=== PATIENT | male | born 1940 | race Asian ===

== ENCOUNTER 2024-11-10 17:39 | Inpatient (IN) ==
[2024-11-10] MEDS: ONDANSETRON INJ 2 MG/ML 2 ML VIAL IV STA (18:12)
[2024-11-10] MEDS: SODIUM CHLORIDE 0.9% 1,000 ML IV ONE ×2 (18:12→19:20)
--- NOTE | 2024-11-10 18:12 | Emergency Department Note ---
Impression & Plan Metastatic primary lung cancer, Sepsis, Abnormal LFTs, Acidosis, lactic, Acute hypotension, Acute dehydration, Elevated troponin I level ED Provider Note NAME: JANETTE CHIU AGE: 84 SEX: M : 1940 ARRIVES VIA: Walk-In INFORMANT: Patient, the patient's daughter ED PROVIDER(S): Raul Hale DO CHIEF COMPLAINT: Altered mental status HPI: The patient is an 84-year-old male who presented to the emergency department through triage for an evaluation of altered mental status. The patient has a history of widely metastatic cancer. He appears to have metastatic disease to his lung brain as well as his liver. The patient recently had a PET scan. He is awaiting a follow-up appointment with oncology but according to his family he stopped eating and drinking. The patient is unsure the results of his recent imaging. ROS: See above HPI for pertinent positives & negatives. A total of 10 systems reviewed and were otherwise negative. PAST MEDICAL HISTORY: See Below PAST SURGICAL HISTORY: See Below FAMILY HISTORY: See Below SOCIAL HISTORY: See Below HOME MEDICATIONS: See Below ALLERGIES: See Below VITALS: See Below PHYSICAL EXAMINATION: GENERAL: The patient awakens to loud verbal commands. EYES: The conjunctiva are icteric. EARS, NOSE, MOUTH AND THROAT: The nose is without any evidence of any deformity. Mucous membranes are dry. NECK: The neck is nontender and supple. RESPIRATORY: Normal respiratory effort is noted there is no evidence of wheezing rhonchi or rales CARDIOVASCULAR: Regular rate and rhythm noted there no murmurs rubs or gallops normal S1 normal S2. GASTROINTESTINAL: The abdomen is soft and nondistended. There is diffuse tenderness to palpation but no guarding. MUSCULOSKELETAL/EXTREMITIES: There is no evidence of gross deformity full range of motion is noted in the hips and shoulders. SKIN: pedal edema was noted bilaterally. Skin was jaundiced and dry. NEUROLOGIC: The patient is awake to loud verbal commands. He follows commands slowly but appropriately. MEDICAL DECISION MAKING: The patient is an 84-year-old male who has a history of metastatic lung cancer who presented to the emergency department with family. The patient has widely metastatic cancer. He has been getting worse. He has metastasis to the brain as well as the liver. The patient was treated with IV fluids in the emergency department. He was found to have hypotension and lactic acidosis. He was covered with IV antibiotics for presumed sepsis. I discussed the patient's laboratory and radiographic studies with his family. I discussed his condition with the on-call [facility] hospitalist. After discussion with the family it sounds though they would prefer the patient to have no aggressive measures. I am not sure they were quite ready for comfort measures at this time but I think the admitting team will have further discussion with them. Triage Nursing notes reviewed. Prior medical records reviewed Vital Signs: reviewed and remarkable for initial hypotension. Differential diagnosis: Infection, dehydration, metabolic abnormality, hypo/hyperglycemia, electrolyte disturbance, anemia, hypoxia, cardiac sources, intracerebral event, toxicologic, neurologic, as well as other pathologies. ER treatment provided: See below Diagnostics interpreted by me: ECG: EKG was obtained in the emergency department. My interpretation is sinus rhythm at 70 bpm. Right bundle branch block pattern was noted. Diffuse T wave abnormalities are noted. This was compared to a tracing from January 28, 2024. No changes were noted. Cardiac Monitoring: An order was placed for continuous cardiac monitoring. The monitor shows a rate of 74 bpm with sinus rhythm. Laboratory studies: As stated above and show below. Imaging studies: See below. Radiographic imaging was reviewed by myself Consultation(s): Dr. Sparks who is on-call for the [facility] group was notified about the patient. 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 Metastatic cancer BPH loc w urin obs/LUTS Prostate cancer screening Urinary frequency Urinary hesitancy Surgical History H/O coronary artery bypass surgery Family History Other No pertinent family history Social History Smoking Status: Former smoker Tobacco Type: Cigarettes Preferred Language: Hebrew Feels Safe at Home: Yes Allergies Allergies Allergy/AdvReac Type Severity Reaction Status Date / Time No Known Allergies Allergy Verified 11/10/24 21:46 Home Meds Home Medications Medication Instructions Recorded Confirmed benzonatate 100 mg capsule 100 mg PO TID PRN Cough 11/10/24 11/10/24 fluticasone 250 mcg-salmeterol 50 2 inh inhalation DAILY 11/10/24 11/10/24 mcg/dose blistr powdr for inhalation megestrol 400 mg/10 mL (40 mg/mL) 800 mg PO DAILY 11/10/24 11/10/24 oral suspension Previous Rx's Medication Instructions Recorded tamsulosin 0.4 mg capsule 0.4 mg PO DAILY #30 caps 02/27/21 Results & Data (ED) Vital Signs Vital Signs - 24 hr 11/10/24 17:50 11/10/24 18:06 11/10/24 18:09 Temperature 36.8 C Temperature Source Temporal Artery Scan Pulse Rate 83 69 Pulse Rate [Apical] 69 Pulse Rate from SpO2 Sensor Pulse Rhythm [Apical] Pulse Strength [Apical] Respiratory Rate 26 H 20 20 Respiratory Effort / Characteristics Respiratory Depth Respiratory Pattern Blood Pressure 60/51 L Blood Pressure [Right Arm] 93/62 L Blood Pressure Mean 54 Blood Pressure Mean [Right Arm] 72 Blood Pressure Position [Right Arm] Pulse Oximetry 97 91 92 Oxygen Delivery Method Room Air Room Air Room Air Oxygen Flow Rate Sepsis Recent Fever Within 48 Hours No Sepsis New/Unexplained Change in Mental Status No Sepsis Action Taken by Nursing No Action Required 11/10/24 18:09 11/10/24 18:14 11/10/24 18:45 Temperature Temperature Source Pulse Rate 74 Pulse Rate [Apical] 64 64 Pulse Rate from SpO2 Sensor Pulse Rhythm [Apical] Pulse Strength [Apical] Respiratory Rate 20 18 Respiratory Effort / Characteristics Respiratory Depth Respiratory Pattern Blood Pressure Blood Pressure [Right Arm] 97/64 L 105/63 Blood Pressure Mean Blood Pressure Mean [Right Arm] 75 77 Blood Pressure Position [Right Arm] Pulse Oximetry 90 95 Oxygen Delivery Method Room Air Nasal Cannula Oxygen Flow Rate 2 Sepsis Recent Fever Within 48 Hours Sepsis New/Unexplained Change in Mental Status Sepsis Action Taken by Nursing 11/10/24 19:00 11/10/24 19:30 11/10/24 19:45 Temperature 36.9 C Temperature Source Oral Pulse Rate Pulse Rate [Apical] 61 60 73 Pulse Rate from SpO2 Sensor Pulse Rhythm [Apical] Regular Regular Regular Pulse Strength [Apical] Normal Normal Normal Respiratory Rate 18 18 18 Respiratory Effort / Characteristics Non-Labored Non-Labored Non-Labored Respiratory Depth Normal Normal Normal Respiratory Pattern Regular Regular Regular Blood Pressure Blood Pressure [Right Arm] 107/66 115/65 110/63 Blood Pressure Mean Blood Pressure Mean [Right Arm] 79 81 78 Blood Pressure Position [Right Arm] Lying Lying Lying Pulse Oximetry 95 96 93 Oxygen Delivery Method Nasal Cannula Nasal Cannula Nasal Cannula Oxygen Flow Rate 2 2 2 Sepsis Recent Fever Within 48 Hours Sepsis New/Unexplained Change in Mental Status Sepsis Action Taken by Nursing 11/10/24 20:00 11/10/24 20:00 11/10/24 20:48 Temperature Temperature Source Pulse Rate 67 76 72 Pulse Rate [Apical] Pulse Rate from SpO2 Sensor 68 76 72 Pulse Rhythm [Apical] Pulse Strength [Apical] Respiratory Rate 20 16 17 Respiratory Effort / Characteristics Respiratory Depth Respiratory Pattern Blood Pressure 111/59 L 111/59 L 115/64 Blood Pressure [Right Arm] Blood Pressure Mean 76 77 81 Blood Pressure Mean [Right Arm] Blood Pressure Position [Right Arm] Pulse Oximetry 93 95 93 Oxygen Delivery Method Nasal Cannula Nasal Cannula Nasal Cannula Oxygen Flow Rate 2 2 2 Sepsis Recent Fever Within 48 Hours Sepsis New/Unexplained Change in Mental Status Sepsis Action Taken by Nursing 11/10/24 21:12 Temperature Temperature Source Pulse Rate 74 Pulse Rate [Apical] Pulse Rate from SpO2 Sensor 74 Pulse Rhythm [Apical] Pulse Strength [Apical] Respiratory Rate 23 Respiratory Effort / Characteristics Respiratory Depth Respiratory Pattern Blood Pressure 108/66 Blood Pressure [Right Arm] Blood Pressure Mean 80 Blood Pressure Mean [Right Arm] Blood Pressure Position [Right Arm] Pulse Oximetry 93 Oxygen Delivery Method Nasal Cannula Oxygen Flow Rate 2 Sepsis Recent Fever Within 48 Hours Sepsis New/Unexplained Change in Mental Status Sepsis Action Taken by Group Home Medications Current Medication List: was personally reviewed by me Laboratory Data Attestation: I reviewed the patient's lab results. 11/10/24 18:00 11/10/24 18:00 Lab Results 11/10/24 11/10/24 11/10/24 Range/Units 18:00 18:06 18:11 WBC 8.49 (4.8-10.8) K/ul RBC 4.17 L (4.70-6.10) M/uL Hgb 13.5 L (14.0-18.0) g/dl POC Hgb 14.3 (14.0-18.0) g/dl Hct 38.8 L (42.0-52.0) % POC Hct 42 (42-52) % MCV 93.0 (80.0-100.0) fL MCH 32.4 (25.0-34.0) pg MCHC 34.8 (32.0-36.0) g/dL RDW Std Deviation 65.6 H (36.4-46.3) fL RDW Coeff of Carolann 20.1 H (11.5-14.5) % Plt Count 168 (130-400) K/uL MPV 11.0 (9.4-12.4) fL Immature Gran % (Auto) 4.9 % Neut % (Auto) 76.1 % Lymph % (Auto) 13.0 % [place] % (Auto) 5.4 % Eos % (Auto) 0.2 % Baso % (Auto) 0.4 % Neut # (Auto) 6.46 (1.40-6.50) K/uL Lymph # (Auto) 1.10 L (1.20-3.40) K/uL [place] # (Auto) 0.46 (0.11-0.59) K/uL Eos # (Auto) 0.02 (0.00-0.50) K/uL Baso # (Auto) 0.03 (0.00-0.20) K/uL Immature Gran # (Auto) 0.42 H (0.01-0.20) K/uL Target Cells 1+ PT Cancelled INR Cancelled APTT Cancelled PTT Ratio Cancelled VBG pH (7.36-7.41) VBG pCO2 (38-50) mmHg VBG pO2 mmHg VBG HCO3 mmol/L VBG O2 Saturation % VBG Base Excess mEq/L POC Sodium 138 (135-144) mmol/L Sodium 132 L (136-145) mmol/L POC Potassium 5.3 H (3.3-5.0) mmol/L Potassium 5.1 (3.5-5.1) mmol/L POC Chloride 110 (101-112) mmol/L Chloride 106 (98-107) mmol/L Carbon Dioxide 29 (21-32) mmol/L POC Total CO2 16 L (24-31) mmol/L Anion Gap -3 L (3-11) POC Anion Gap 18.0 (16-25) mmol/L POC BUN 63 H (7-18) mg/dl BUN 72 H (6-23) mg/dl Creatinine 2.49 H (0.6-1.4) mg/dl POC Creatinine 2.8 H (0.6-1.3) mg/dl Est Cr Clr Drug Dosing 17.4 ml/min eGFR 24.99 BUN/Creatinine Ratio 28.9 H (10-20) Glucose 154 H (70-99(Fasting)) mg/dl POC Glucose (other) 156 H (70-99) mg/dl Lactate 4.0 H* (0.4-2.0) mmol/L Calcium 9.6 (8.6-10.3) mg/dl POC Ioniz Calcium Chevy 1.27 (1.12-1.32) mmol/l Magnesium 2.4 (1.7-2.4) mg/dl Total Bilirubin 15.9 H (0.2-1.0) mg/dl Direct Bilirubin 9.5 H (0-0.2) mg/dl AST 489 H (13-39) U/L ALT 197 H (7-52) U/L Alkaline Phosphatase 1000 H (34-104) U/L Ammonia 68.0 (18-72) umol/L Troponin I High Sens 126.2 H* (0-20) pg/ml Total Protein 7.5 (6.0-8.3) gm/dl Albumin 2.8 L (3.4-5.0) gm/dl Procalcitonin 1.79 H (0-0.5) ng/ml Adenovirus (PCR) Not Detected (NotDetected) B. pertussis DNA (PCR) Not Detected (NotDetected) B.parapertussis DNA PCR Not Detected (NotDetected) C. pneumoniae DNA (PCR) Not Detected (NotDetected) Coronavirus OC43 (PCR) Not Detected (NotDetected) Coronavirus HKU1 (PCR) Not Detected (NotDetected) Coronavirus 229E (PCR) Not Detected (NotDetected) SARS-CoV-2 (PCR) Not Detected (NotDetected) Coronavirus NL63 (PCR) Not Detected (NotDetected) Human Metapneumovir PCR Not Detected (NotDetected) Influenza Type A (PCR) Not Detected (NotDetected) Influenza Type B (PCR) Not Detected (NotDetected) M. pneumoniae (PCR) Not Detected (NotDetected) Parainfluenza 1 (PCR) Not Detected (NotDetected) Parainfluenza 2 (PCR) Not Detected (NotDetected) Parainfluenza 3 (PCR) Not Detected (NotDetected) Parainfluenza 4 (PCR) Not Detected (NotDetected) RSV (PCR) Not Detected (NotDetected) Entero/Rhino (PCR) Not Detected (NotDetected) 11/10/24 11/10/24 Range/Units 19:16 20:33 WBC (4.8-10.8) K/ul RBC (4.70-6.10) M/uL Hgb (14.0-18.0) g/dl POC Hgb (14.0-18.0) g/dl Hct (42.0-52.0) % POC Hct (42-52) % MCV (80.0-100.0) fL MCH (25.0-34.0) pg MCHC (32.0-36.0) g/dL RDW Std Deviation (36.4-46.3) fL RDW Coeff of Carolann (11.5-14.5) % Plt Count (130-400) K/uL MPV (9.4-12.4) fL Immature Gran % (Auto) % Neut % (Auto) % Lymph % (Auto) % [place] % (Auto) % Eos % (Auto) % Baso % (Auto) % Neut # (Auto) (1.40-6.50) K/uL Lymph # (Auto) (1.20-3.40) K/uL [place] # (Auto) (0.11-0.59) K/uL Eos # (Auto) (0.00-0.50) K/uL Baso # (Auto) (0.00-0.20) K/uL Immature Gran # (Auto) (0.01-0.20) K/uL Target Cells PT 11.6 INR 1.1 APTT 27 PTT Ratio 1.0 VBG pH 7.31 L (7.36-7.41) VBG pCO2 32 L (38-50) mmHg VBG pO2 37 mmHg VBG HCO3 16 mmol/L VBG O2 Saturation < 60.0 % VBG Base Excess -9.0 mEq/L POC Sodium (135-144) mmol/L Sodium (136-145) mmol/L POC Potassium (3.3-5.0) mmol/L Potassium (3.5-5.1) mmol/L POC Chloride (101-112) mmol/L Chloride (98-107) mmol/L Carbon Dioxide (21-32) mmol/L POC Total CO2 (24-31) mmol/L Anion Gap (3-11) POC Anion Gap (16-25) mmol/L POC BUN (7-18) mg/dl BUN (6-23) mg/dl Creatinine (0.6-1.4) mg/dl POC Creatinine (0.6-1.3) mg/dl Est Cr Clr Drug Dosing ml/min eGFR BUN/Creatinine Ratio (10-20) Glucose (70-99(Fasting)) mg/dl POC Glucose (other) (70-99) mg/dl Lactate 3.0 H* (0.4-2.0) mmol/L Calcium (8.6-10.3) mg/dl POC Ioniz Calcium Chevy (1.12-1.32) mmol/l Magnesium (1.7-2.4) mg/dl Total Bilirubin (0.2-1.0) mg/dl Direct Bilirubin (0-0.2) mg/dl AST (13-39) U/L ALT (7-52) U/L Alkaline Phosphatase (34-104) U/L Ammonia (18-72) umol/L Troponin I High Sens 112.6 H* (0-20) pg/ml Total Protein (6.0-8.3) gm/dl Albumin (3.4-5.0) gm/dl Procalcitonin (0-0.5) ng/ml Adenovirus (PCR) (NotDetected) B. pertussis DNA (PCR) (NotDetected) B.parapertussis DNA PCR (NotDetected) C. pneumoniae DNA (PCR) (NotDetected) Coronavirus OC43 (PCR) (NotDetected) Coronavirus HKU1 (PCR) (NotDetected) Coronavirus 229E (PCR) (NotDetected) SARS-CoV-2 (PCR) (NotDetected) Coronavirus NL63 (PCR) (NotDetected) Human Metapneumovir PCR (NotDetected) Influenza Type A (PCR) (NotDetected) Influenza Type B (PCR) (NotDetected) M. pneumoniae (PCR) (NotDetected) Parainfluenza 1 (PCR) (NotDetected) Parainfluenza 2 (PCR) (NotDetected) Parainfluenza 3 (PCR) (NotDetected) Parainfluenza 4 (PCR) (NotDetected) RSV (PCR) (NotDetected) Entero/Rhino (PCR) (NotDetected) Administered Medications Discontinued Medications Sodium Chloride (Nss) 1,000 mls @ 999 mls/hr IV .Q1H1M ONE Stop: 11/10/24 18:59 Last Infusion: 11/10/24 19:26 Dose: Infused Documented By: Admin: 11/10/24 18:12 Dose: 999 mls/hr Documented By: CYN Sodium Chloride (Nss) 1,000 mls @ 999 mls/hr IV .Q1H1M ONE Stop: 11/10/24 19:37 Last Infusion: 11/10/24 20:43 Dose: Infused Documented By: Admin: 11/10/24 19:20 Dose: 999 mls/hr Documented By: RENUKA Piperacillin Sod/Tazobactam Sod (Zosyn) 4.5 gm in 100 mls @ 200 mls/hr IV NOW ONE; Protocol Stop: 11/10/24 19:41 Last Infusion: 11/10/24 19:50 Dose: Infused Documented By: Admin: 11/10/24 19:20 Dose: 200 mls/hr Documented By: RENUKA Morphine Sulfate (Morphine Sulfate 4 Mg/Ml 1 Ml Carp\Vial) 4 mg IV NOW STA Stop: 11/10/24 18:10 Last Admin: 11/10/24 18:13 Dose: 4 mg Documented By: CYN Ondansetron HCl (Ondansetron Inj 2 Mg/Ml 2 Ml Vial) 4 mg IV NOW STA Stop: 11/10/24 18:10 Last Admin: 11/10/24 18:12 Dose: 4 mg Documented By: CYN Imaging Data Attestation: I personally reviewed and interpreted this imaging study as follows: My Impression: 1 view chest x-ray was obtained in the emergency department. My interpretation is interstitial prominence, there is no free air, final report below. CT the brain was obtained in the emergency department. My interpretation is metastatic disease was noted, final report below. Radiologist's Impression: Chest X-Ray 11/10/24 17:59 Clinical History: Sepsis Technique: A frontal view of the chest was obtained Comparison is made to the prior examination dated 08/08/2024 Findings: There are no definite focal pulmonary infiltrates. There is suspected mild pulmonary vascular congestion. The heart size is at the upper limit of normal. No pleural effusion or pneumothorax is seen. There is a left upper lobe nodule, which appears slightly decreased in size. Impression: 1. Suspected decrease in size of a left upper lobe mass 2. Increased interstitial prominence that may be due to pulmonary vascular congestion Electronically signed by Kyle Doyle 11-10-2024 7:[address] 11/10/24 18:02 Clinical History: Weakness. Lung cancer Technique: Axial computed tomography images were obtained of the brain without intravenous contrast. Comparison is made to the MRI dated 10/28/2034 Findings: There is unchanged cerebral atrophy, within expected limits for the patient's age. Areas of decreased attenuation are seen within the periventricular white matter, likely representing chronic small vessel ischemic disease. There is no definite sign of acute or old infarction. No intracranial hemorrhage is evident. Allowing for differences in technique, there is no definite change in a left frontal lobe interparenchymal mass with surrounding cerebral edema. The previously seen smaller right frontal mass is likely unchanged as well, with adjacent edema again noted. There is no definite change in edema within the left parietal lobe around an additional mass. There is no midline shift or other form of herniation. No hydrocephalus is seen. No fracture is identified. The orbits and the visualized paranasal sinuses appear unremarkable. The mastoid air cells appear clear. Impression: 1. Cerebral atrophy and chronic small vessel ischemic disease 2. No definite change in multiple cerebral masses, consistent with metastatic disease Electronically signed by Kyle Doyle 11-10-2024 7:05 PM Abdomen/Pelvis CT 11/10/24 18:09 CT ABDOMEN and PELVIS without INTRAVENOUS CONTRAST HISTORY: Abdominal pain TECHNIQUE: CT abdomen and pelvis without contrast. IV CONTRAST: None ENTERIC CONTRAST: None. COMPARISON: PET/CT November 03, 2024. FINDINGS: LOWER CHEST: Please refer to separately dictated chest CT report from the same day. LIVER: Multifocal ill-defined hypodensities of the liver representing metastases which were better evaluated in the prior PET/CT. There is mild enlargement of the liver. GALLBLADDER/BILIARY: Gallbladder containing sludge and small stones. No appreciable pericholecystic inflammation. No abnormal biliary dilatation. SPLEEN: Unremarkable. PANCREAS: Unremarkable. ADRENALS: There are incomplete characterized adrenal nodules measuring up to 2.0 cm.. KIDNEYS: Cortical cysts. No stones or hydronephrosis identified. PERITONEUM/RETROPERITONEUM. There are multiple enlarged lymph nodes in the upper abdomen in the gastrohepatic interval, portacaval area and in the gastropancreatic interval and in the retroperitoneum measuring up to 2.0 cm. There is an infrarenal abdominal aortic aneurysm measuring up to 3.3 cm in size. GASTROINTESTINAL: No obstruction. Appendix normal. REPRODUCTIVE: Normal-sized prostate gland with tiny calcifications. URINARY BLADDER: Unremarkable. BONES: No acute findings. Mild anterior wedging of the T12 vertebral body, probably chronic. IMPRESSION: Limited evaluation of the abdominopelvic viscera in the absence of the intravenous contrast. Within this limitation: Diffuse hepatic metastases and upper abdominal ivelisse metastases are identified. Incompletely characterized adrenal nodules may represent metastases as well. An infrarenal abdominal aortic aneurysm measuring up to 3.3 cm in size. Electronically signed by Dillon Mata 11-10-2024 7:[address] 11/10/24 18:09 Clinical history: Lung cancer Technique: Axial computed tomography images were obtained of the chest without intravenous contrast Comparison is made to the prior CT dated 09/20/2024 Findings: Severe emphysema is again seen. There is a 2.9 x 2.2 cm spiculated mass in the left upper lobe abutting the top of the left major fissure, previously 3.4 x 2.5 cm. The previously noted small scattered pulmonary nodules appear to have decreased in size and number as well. There is no pleural effusion or pneumothorax. There is dependent subsegmental atelectasis in both lower lobes. There is a small calcified granuloma in the right lower lobe. Confluent mediastinal adenopathy is again seen, consistent with metastatic disease. The thoracic aorta is of normal caliber. There is no pericardial effusion. There is coronary atherosclerosis No fracture is seen. No focal osseous lesion is evident Impression: 1. Slight decrease in size of a left upper lobe mass, likely representing bronchogenic carcinoma responding to therapy 2. Interval decrease in size and number of small pulmonary nodules, which may represent metastatic disease responding to therapy 3. Severe emphysema 4. Bilateral lower lobe atelectasis 5. Unchanged extensive mediastinal adenopathy, consistent with metastatic disease Electronically signed by Kyle Doyle 11-10-2024 7:10 PM Discharge Plan Visit Data Chief Complaint: Weakness Stated Complaint: VERY WEAK, LUNG CANCER SPREADING TO LIVER ED Provider: Raul Hale Discharge Problem: Metastatic primary lung cancer, Sepsis, Abnormal LFTs, Acidosis, lactic, Acute hypotension, Acute dehydration, Elevated troponin I level Patient Disposition: Being Evaluated by Hospitalist Forms Stand Alone Forms: My [employer] Prescriptions Prescriptions: No Action tamsulosin 0.4 mg capsule 0.4 mg PO DAILY Qty: 30 2RF megestrol 400 mg/10 mL (40 mg/mL) suspension 800 mg PO DAILY fluticasone propion-salmeterol 250-50 mcg/dose blister with device 2 inh INHALATION DAILY benzonatate 100 mg capsule 100 mg PO TID PRN (Reason: Cough) Referrals Referrals: Nancy Matt [Primary Care Provider] -
[2024-11-10] MEDS: MoRPHine SULFATE 4 MG/ML 1 ML CARP\\VIAL IV STA (18:13)
[2024-11-10 18:18] LABS: iSTAT Creatinine 2.8 mg/dl (0.6-1.3); iSTAT Hemoglobin 14.3 g/dl (14.0-18.0); iSTAT Ionized Calcium 1.27 mmol/l (1.12-1.32); iSTAT Potassium 5.3 mmol/L (3.3-5.0)
[2024-11-10 18:31] LABS: Basophils # (auto) 0.03 K/uL (0.00-0.20); Basophils % (auto) 0.4 %; Eosinophils # (auto) 0.02 K/uL (0.00-0.50); Eosinophils % (auto) 0.2 %; Hematocrit (blood only) 38.8 % (42.0-52.0); Hemoglobin 13.5 g/dl (14.0-18.0); Immature Granulocytes # (auto) 0.42 K/uL (0.01-0.20); Immature Granulocytes % (auto) 4.9 %; Mean Corpuscular Hemoglobin 32.4 pg (25.0-34.0); Mean Corpuscular Hgb Conc 34.8 g/dL (32.0-36.0); Monocytes # (auto) 0.46 K/uL (0.11-0.59); Monocytes % (auto) 5.4 %; Neutrophils # (auto) 6.46 K/uL (1.40-6.50); Neutrophils % (auto) 76.1 %; Platelet Count 168 K/uL (130-400); RDW Coefficient of Variation 20.1 % (11.5-14.5); RDW Standard Deviation 65.6 fL (36.4-46.3); Red Blood Count 4.17 M/uL (4.70-6.10); White Blood Count 8.49 K/ul (4.8-10.8)
[2024-11-10 18:49] LABS: Albumin Level 2.8 gm/dl (3.4-5.0); BUN Creatinine Ratio 28.9 (10-20); Bilirubin Direct 9.5 mg/dl (0-0.2); Bilirubin,Total 15.9 mg/dl (0.2-1.0); Calcium 9.6 mg/dl (8.6-10.3); Creatinine Clr Calc Pharmacy 17.4 ml/min; Magnesium 2.4 mg/dl (1.7-2.4); Potassium 5.1 mmol/L (3.5-5.1); Total Protein 7.5 gm/dl (6.0-8.3)
[2024-11-10 18:57] LABS: Troponin I High Sensitivity 126.2 pg/ml (0-20)
[2024-11-10 19:05] LABS: Target Cells 1+
--- NOTE | 2024-11-10 19:05 | CT Scan Report ---
Clinical History: Weakness. Lung cancer Technique: Axial computed tomography images were obtained of the brain without intravenous contrast. Comparison is made to the MRI dated 10/28/2034 Findings: There is unchanged cerebral atrophy, within expected limits for the patient's age. Areas of decreased attenuation are seen within the periventricular white matter, likely representing chronic small vessel ischemic disease. There is no definite sign of acute or old infarction. No intracranial hemorrhage is evident. Allowing for differences in technique, there is no definite change in a left frontal lobe interparenchymal mass with surrounding cerebral edema. The previously seen smaller right frontal mass is likely unchanged as well, with adjacent edema again noted. There is no definite change in edema within the left parietal lobe around an additional mass. There is no midline shift or other form of herniation. No hydrocephalus is seen. No fracture is identified. The orbits and the visualized paranasal sinuses appear unremarkable. The mastoid air cells appear clear. Impression: 1. Cerebral atrophy and chronic small vessel ischemic disease 2. No definite change in multiple cerebral masses, consistent with metastatic disease Electronically signed by Kyle Doyle 11-10-2024 7:05 PM
--- NOTE | 2024-11-10 19:11 | CT Scan Report ---
Clinical history: Lung cancer Technique: Axial computed tomography images were obtained of the chest without intravenous contrast Comparison is made to the prior CT dated 09/20/2024 Findings: Severe emphysema is again seen. There is a 2.9 x 2.2 cm spiculated mass in the left upper lobe abutting the top of the left major fissure, previously 3.4 x 2.5 cm. The previously noted small scattered pulmonary nodules appear to have decreased in size and number as well. There is no pleural effusion or pneumothorax. There is dependent subsegmental atelectasis in both lower lobes. There is a small calcified granuloma in the right lower lobe. Confluent mediastinal adenopathy is again seen, consistent with metastatic disease. The thoracic aorta is of normal caliber. There is no pericardial effusion. There is coronary atherosclerosis No fracture is seen. No focal osseous lesion is evident Impression: 1. Slight decrease in size of a left upper lobe mass, likely representing bronchogenic carcinoma responding to therapy 2. Interval decrease in size and number of small pulmonary nodules, which may represent metastatic disease responding to therapy 3. Severe emphysema 4. Bilateral lower lobe atelectasis 5. Unchanged extensive mediastinal adenopathy, consistent with metastatic disease Electronically signed by Kyle Doyle 11-10-2024 7:10 PM
[2024-11-10] MEDS: PIPERACILLIN/TAZOBACTAM 4.5 GM/100 ML BAG IV ONE (19:20)
--- NOTE | 2024-11-10 19:23 | CT Scan Report ---
CT ABDOMEN and PELVIS without INTRAVENOUS CONTRAST HISTORY: Abdominal pain TECHNIQUE: CT abdomen and pelvis without contrast. IV CONTRAST: None ENTERIC CONTRAST: None. COMPARISON: PET/CT November 03, 2024. FINDINGS: LOWER CHEST: Please refer to separately dictated chest CT report from the same day. LIVER: Multifocal ill-defined hypodensities of the liver representing metastases which were better evaluated in the prior PET/CT. There is mild enlargement of the liver. GALLBLADDER/BILIARY: Gallbladder containing sludge and small stones. No appreciable pericholecystic inflammation. No abnormal biliary dilatation. SPLEEN: Unremarkable. PANCREAS: Unremarkable. ADRENALS: There are incomplete characterized adrenal nodules measuring up to 2.0 cm.. KIDNEYS: Cortical cysts. No stones or hydronephrosis identified. PERITONEUM/RETROPERITONEUM. There are multiple enlarged lymph nodes in the upper abdomen in the gastrohepatic interval, portacaval area and in the gastropancreatic interval and in the retroperitoneum measuring up to 2.0 cm. There is an infrarenal abdominal aortic aneurysm measuring up to 3.3 cm in size. GASTROINTESTINAL: No obstruction. Appendix normal. REPRODUCTIVE: Normal-sized prostate gland with tiny calcifications. URINARY BLADDER: Unremarkable. BONES: No acute findings. Mild anterior wedging of the T12 vertebral body, probably chronic. IMPRESSION: Limited evaluation of the abdominopelvic viscera in the absence of the intravenous contrast. Within this limitation: Diffuse hepatic metastases and upper abdominal ivelisse metastases are identified. Incompletely characterized adrenal nodules may represent metastases as well. An infrarenal abdominal aortic aneurysm measuring up to 3.3 cm in size. Electronically signed by Dillon Mata 11-10-2024 7:23 PM
[2024-11-10 19:25] LABS: Adenovirus PCR Not Detected (NotDetected); Bordetella parapertussis PCR Not Detected (NotDetected); Bordetella pertussis PCR Not Detected (NotDetected); Chlamydia pneumoniae PCR Not Detected (NotDetected); Coronavirus 229E PCR Not Detected (NotDetected); Coronavirus CoV-2 (COVID19)PCR Not Detected (NotDetected); Coronavirus HKU1 PCR Not Detected (NotDetected); Coronavirus NL63 PCR Not Detected (NotDetected); Coronavirus OC43PCR Not Detected (NotDetected); Human Metapneumovirus PCR Not Detected (NotDetected); Influenza A PCR Not Detected (NotDetected); Influenza B PCR Not Detected (NotDetected); Mycoplasma pneumoniae PCR Not Detected (NotDetected); Parainfluenza Virus 1 PCR Not Detected (NotDetected); Parainfluenza Virus 2 PCR Not Detected (NotDetected); Parainfluenza Virus 3 PCR Not Detected (NotDetected); Parainfluenza Virus 4 PCR Not Detected (NotDetected); Respiratory Syncytial VirusPCR Not Detected (NotDetected); Rhinovirus/Enterovirus PCR Not Detected (NotDetected)
[2024-11-10 19:35] LABS: HCO3 VBG 16 mmol/L; Oxygen Saturation VBG < 60.0 %; PCO2 VBG 32 mmHg (38-50); PO2 VBG 37 mmHg; pH VBG 7.31 (7.36-7.41)
--- NOTE | 2024-11-10 19:53 | XRay Report ---
Clinical History: Sepsis Technique: A frontal view of the chest was obtained Comparison is made to the prior examination dated 08/08/2024 Findings: There are no definite focal pulmonary infiltrates. There is suspected mild pulmonary vascular congestion. The heart size is at the upper limit of normal. No pleural effusion or pneumothorax is seen. There is a left upper lobe nodule, which appears slightly decreased in size. Impression: 1. Suspected decrease in size of a left upper lobe mass 2. Increased interstitial prominence that may be due to pulmonary vascular congestion Electronically signed by Kyle Doyle 11-10-2024 7:53 PM
[2024-11-10 20:13] LABS: INR 1.1 (0.9-1.1); Partial Thromboplastin Time 27 Seconds (21-31); Prothrombin Time 11.6 Seconds (9.0-12.0)
--- NOTE | 2024-11-10 21:21 | Advance Care Plan Prog Note ---
Advanced Care Planning Note Date of Discussion November 10, 2024 ACP Discussion Diagnoses requiring ACP discussion: Metastatic cancer unknown primary A [id number] discussion with the patient's daughters regarding the patient's advanced care planning took place during this hospitalization on the above date. The discussion included the explanation and discussion of advance directives and associated forms/documents, as well as the patient's current code status. We also discussed at length the patient's medical conditions (both acute and chronic), general prognosis, treatment options, and goals of care. The following summarizes the discussion: Extensive discussion had with family a bout patient's condition. Family understands that we are likely moving into the active stage of dying. Would like to focus on comfort as we move towards the end of life. Family aware that we will not be giving anymore fluids or antibiotics. We will admit to [facility] as patient will likely pass in the next few days. Status Resuscitation Status DNR/DNI No Resuscitation Total Time I spent a total of 29 minutes was spent on this discussion, including counseling, answering questions, and completing, if any, pertinent advanced care planning forms/documents. Resident Activity Tracking Resident Involvement: Resident Care Provided Care Provided: Adult [facility]
--- NOTE | 2024-11-10 21:28 | History & Physical Report ---
Date of Service November 10, 2024 Assessment & Plan (1) Metastatic cancer: Plan: Likely lung primary with brain and liver mets. No formal diagnosis has been made at this time. Patient no longer eating or drinking much at all. Labs with signs of end organ damage and multi-organ failure. Esau discussion was had with family regarding end of life planning. Will admit for end of life care and comfort measures only. discontinue home meds STAFF SERVICES MANAGER order set, no labs or vitals palliative consult - appreciate recs (2) Admission for end of life care: Plan: See advanced care planning documentation for further information (3) Comfort measures only status: (4) Metastasis to liver: (5) Metastasis to brain: Plan Code status: DNR/DNI STAFF SERVICES MANAGER DVT ppx: contraindicated FENGI: as desired, no IVF Dispo: [facility], STAFF SERVICES MANAGER anticipate passing while inpatient History of Present Illness Chief Complaint: weakness Primary Care Provider: Nancy Matt 84 y/o presents with failure to thrive. Patient diagnosed with lung cancer 09/20/2024 with mets to the liver and brain. Has not started treatment. Plan was to review Brain MRI and PET with Dr. Chambers next week and decide on next steps. Over the last few days he has become acutely weaker. Patient is barely eating or drinking. Family concerned that he may be in the active stage of dying. Daughters are at bedside and translate for the patient as he is mandarin speaking. Reportedly patient has noticed blurry vision and is uncomfortable. In the ED: Patient given 2L IVF, morphine, and Zosyn. Imaging performed as well. Hospitalist service consulted for admission. Allergies Allergy/AdvReac Type Severity Reaction Status Date / Time No Known Allergies Allergy Verified 11/10/24 21:46 Home Medications Medication Instructions Recorded Confirmed Type tamsulosin 0.4 mg capsule 0.4 mg PO DAILY #30 caps 02/27/21 11/10/24 Rx benzonatate 100 mg capsule 100 mg PO TID PRN Cough 11/10/24 11/10/24 History fluticasone 250 mcg-salmeterol 50 2 inh inhalation DAILY 11/10/24 11/10/24 History mcg/dose blistr powdr for inhalation megestrol 400 mg/10 mL (40 mg/mL) 800 mg PO DAILY 11/10/24 11/10/24 History oral suspension 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 Metastatic cancer BPH loc w urin obs/LUTS Prostate cancer screening Urinary frequency Urinary hesitancy Surgical History H/O coronary artery bypass surgery Family History Other No pertinent family history Social History Smoking Status: Former smoker Tobacco Type: Cigarettes Cigarettes Per Day: A pack a day.; Second Hand Exposure: No; Do You Dip or Chew Tobacco: No; Tobacco Cessation Education Requested by Patient: No Hx Alcohol Use: No Hx Substance Use: No Preferred Language: Mandarin Swedish Communication Ability: Impaired Communication Tools: Other Block Trader Required: Yes Beliefs That Will Affect Care: Adventist Adventist Beliefs: Islam. Current Living Situation: Spouse Current Living Situation Comment: Lives in [facility]. Other Information That Helps Us Care for You: No Feels Safe at Home: Yes Safety Concerns: Feels Safe At This Time Assistive Devices: Cane, Denture - Upper, Denture - Lower and Glasses Review of Systems 2 Review of Systems: See HPI Physical Exam 2 Physical Exam: Gen: jaundiced, chronically ill, and cachectic appearing male in no distress HEENT: AT AR dry mucous membranes Resp: non-labored breathing CV: RRR no m/r/g skin is warm Abd: non-distended MSK: no obvious deformities Skin: no rashes or bruising Neuro: alert and oriented Psych: appropriate mood and affect Results & Data Results & Data Vital Signs (Past 12 Hours) Vital Signs Temp Pulse Pulse Resp BP BP Pulse Ox 11/10/24 20:48 72 17 115/64 93 11/10/24 20:00 76 16 111/59 L 95 11/10/24 20:00 67 20 111/59 L 93 11/10/24 19:45 73 18 110/63 93 11/10/24 19:30 60 18 115/65 96 11/10/24 19:00 36.9 C 61 18 107/66 95 11/10/24 18:45 64 18 105/63 95 11/10/24 18:14 64 20 97/64 L 90 11/10/24 18:09 74 11/10/24 18:09 69 20 92 11/10/24 18:06 69 20 93/62 L 91 11/10/24 17:50 36.8 C 83 26 H 60/51 L 97 O2 Del Method O2 Flow Rate 11/10/24 20:48 Nasal Cannula 2 11/10/24 20:00 Nasal Cannula 2 11/10/24 20:00 Nasal Cannula 2 11/10/24 19:45 Nasal Cannula 2 11/10/24 19:30 Nasal Cannula 2 11/10/24 19:00 Nasal Cannula 2 11/10/24 18:45 Nasal Cannula 2 11/10/24 18:14 Room Air 11/10/24 18:09 11/10/24 18:09 Room Air 11/10/24 18:06 Room Air 11/10/24 17:50 Room Air Laboratory Results 11/10/24 18:00 11/10/24 18:00 Diagnostic Findings Chest X-Ray 11/10/24 17:59 Findings: There are no definite focal pulmonary infiltrates. There is suspected mild pulmonary vascular congestion. The heart size is at the upper limit of normal. No pleural effusion or pneumothorax is seen. There is a left upper lobe nodule, which appears slightly decreased in size. Impression: 1. Suspected decrease in size of a left upper lobe mass 2. Increased interstitial prominence that may be due to pulmonary vascular congestion Head CT 11/10/24 18:02 There is unchanged cerebral atrophy, within expected limits for the patient's age. Areas of decreased attenuation are seen within the periventricular white matter, likely representing chronic small vessel ischemic disease. There is no definite sign of acute or old infarction. No intracranial hemorrhage is evident. Allowing for differences in technique, there is no definite change in a left frontal lobe interparenchymal mass with surrounding cerebral edema. The previously seen smaller right frontal mass is likely unchanged as well, with adjacent edema again noted. There is no definite change in edema within the left parietal lobe around an additional mass. There is no midline shift or other form of herniation. No hydrocephalus is seen. No fracture is identified. The orbits and the visualized paranasal sinuses appear unremarkable. The mastoid air cells appear clear. Impression: 1. Cerebral atrophy and chronic small vessel ischemic disease 2. No definite change in multiple cerebral masses, consistent with metastatic disease Abdomen/Pelvis CT 11/10/24 18:09 FINDINGS: LOWER CHEST: Please refer to separately dictated chest CT report from the same day. LIVER: Multifocal ill-defined hypodensities of the liver representing metastases which were better evaluated in the prior PET/CT. There is mild enlargement of the liver. GALLBLADDER/BILIARY: Gallbladder containing sludge and small stones. No appreciable pericholecystic inflammation. No abnormal biliary dilatation. SPLEEN: Unremarkable. PANCREAS: Unremarkable. ADRENALS: There are incomplete characterized adrenal nodules measuring up to 2.0 cm. KIDNEYS: Cortical cysts. No stones or hydronephrosis identified. PERITONEUM/RETROPERITONEUM. There are multiple enlarged lymph nodes in the upper abdomen in the gastrohepatic interval, portacaval area and in the gastropancreatic interval and in the retroperitoneum measuring up to 2.0 cm. There is an infrarenal abdominal aortic aneurysm measuring up to 3.3 cm in size. GASTROINTESTINAL: No obstruction. Appendix normal. REPRODUCTIVE: Normal-sized prostate gland with tiny calcifications. URINARY BLADDER: Unremarkable. BONES: No acute findings. Mild anterior wedging of the T12 vertebral body, probably chronic. IMPRESSION: Limited evaluation of the abdominopelvic viscera in the absence of the intravenous contrast. Within this limitation: Diffuse hepatic metastases and upper abdominal ivelisse metastases are identified. Incompletely characterized adrenal nodules may represent metastases as well. An infrarenal abdominal aortic aneurysm measuring up to 3.[address] 11/10/24 18:09 Severe emphysema is again seen. There is a 2.9 x 2.2 cm spiculated mass in the left upper lobe abutting the top of the left major fissure, previously 3.4 x 2.5 cm. The previously noted small scattered pulmonary nodules appear to have decreased in size and number as well. There is no pleural effusion or pneumothorax. There is dependent subsegmental atelectasis in both lower lobes. There is a small calcified granuloma in the right lower lobe. Confluent mediastinal adenopathy is again seen, consistent with metastatic disease. The thoracic aorta is of normal caliber. There is no pericardial effusion. There is coronary atherosclerosis No fracture is seen. No focal osseous lesion is evident Impression: 1. Slight decrease in size of a left upper lobe mass, likely representing bronchogenic carcinoma responding to therapy 2. Interval decrease in size and number of small pulmonary nodules, which may represent metastatic disease responding to therapy 3. Severe emphysema 4. Bilateral lower lobe atelectasis 5. Unchanged extensive mediastinal adenopathy, consistent with metastatic disease Code Status & VTE Plan VTE Prophylaxis Plan VTE Prophylaxis will be ordered: No Reason for no VTE drug order: Treatment not indicated Supervising Physician Co-Signing Physician Notes Attending addendum: I have physically seen this patient, have supervised the medical residents activities, and agree with the H&P unless as otherwise noted. Assessment and Plan: The patient is a 84-year-old male with presentation to the emergency department with generalized fatigue, decreased responsiveness, overall failure to thrive. He is Mandarin speaking, and conversations primarily generated with his family who is in attendance. The patient has been diagnosed with lung cancer in 09/20/2024, with metastases to liver and brain. He has not started any chemotherapy treatment. Plan was to review MRI brain and PET/CT with Dr. Davis next week, decide on whether treatment was going to be feasible. After discussion with family in the emergency department, it is apparent that patient would be best served with comfort measures, and family is in agreement with this decision. Patient is being referred for evaluation for admission to the hospital service for comfort care measures with consult to palliative care in the a.m. #Widely metastatic cancer to liver, brain and most organs- Comfort measures only admission with protocol orders in place Consult to palliative care in the a.m. Resident Activity Tracking Resident Involvement: Resident Care Provided Care Provided: Adult [facility] Medicine
[2024-11-11] MEDS ORDERED: MoRPHine SULFATE 10 MG/0.5 ML UDP PO PRN (00:02)
[2024-11-11] MEDS ORDERED: MELATONIN 3 MG TAB PO PRN (00:02)
[2024-11-11] MEDS ORDERED: LORazepam 2 MG/1 ML VIAL IV PRN (00:02)
[2024-11-11] MEDS ORDERED: HYOSCYAMINE SULFATE 0.125 MG TAB SL PRN (00:02)
--- NOTE | 2024-11-11 04:49 | Billing Data ---
Date of Service November 11, 2024 Coding Level of Care Code 62671 INT INP/OBS CARE
--- NOTE | 2024-11-11 08:41 | Palliative Care Consultation ---
Date of Consultation November 11, 2024 Assessment & Plan (1) Palliative care by specialist: Palliative care will continue to follow for ongoing EOL pt care and family support. Daughter Tesha at bedside, She shared that the pt does not speak nor understand Malay and either she or her sister will be at bedside RTC to assist with interpretation. Pt sleeping quietly and does not exhibit any nonverbal cues of discomfort at present. Tesha shared that the pt has not slept well due to frequent urination and requests a weeks catheter. She also requests a "sleep aid" to help him rest better. Melatonin changed to scheduld QHS and weeks order placed. Tesha expressed concern that the pt will not complain even if he is in severe pain. I reviewed PRN medications available for comfort care and encouraged Tesha to let B[facility] know if pt appears to be uncomfortable. Anticipatory guidance offered. Discussed changes pt may move through in the dying process including but not limited to sleeping more, disorientation when awake, restlessness, diminished senses/inability to respond to stimulus although ability to be aware of them remains intact longer, and changes in body temperatures, skin changes/mottling/cyanosis, respiratory pattern changes, and oral secretions. Family verbalized understanding. The goal is to assure a peaceful . (2) Comfort measures only status: Pt transitioned to comfort directed care in ED on 11/10/2024. Pt does not currently meet criteria for GIP hospice. (3) Need for comfort care: EOL Symptom manamgement: Pain/dyspnea/tachypnea morphine 2mg IVP PRN [id number] Consider titratable morphine drip if pt requires >3 PRN doses in under two consecutive hours. Nausea/vomitting zofran 4mg IVP q4h PRN Agitation ativan 0.5mg IVP q4h PRN Hyperactive delirium haldol 5mg IVP q6h PRN Secretions - if repositioning not effective robinul 0.4mg IV q4h PRN atropine SL 3 drops Q1h PRN Nursing care: Discontinue all medications not directed towards comfort. Detether pt from IV tubing, monitor cables, and check vitals once per shift. Please continue HFNC and titrate down as able for patient comfort. Use medications above PRN for dyspnea/tachypnea and do not increase oxygen once titrated down. Assess q1h for pain/dyspnea and treat accordingly. Plan as above History of Present Illness Reason for Consultation: Comfort directed/EOL care Requesting Physician: Ozzie Lima MD Attending Physician: Ozzie Lima MD History of Present Illness 84 y/o presents with failure to thrive. Patient diagnosed with lung cancer 09/20/2024 with mets to the liver and brain. Has not started treatment. Plan was to review Brain MRI and PET with Dr. Chambers next week and decide on next steps. Over the last few days he has become acutely weaker. Patient is barely eating or drinking. Daughter brought pt to ED for hospice evaluation. Allergies Allergy/AdvReac Type Severity Reaction Status Date / Time No Known Allergies Allergy Verified 11/10/24 21:46 Home Medications Medication Instructions Recorded Confirmed Type tamsulosin 0.4 mg capsule 0.4 mg PO DAILY #30 caps 02/27/21 11/10/24 Rx benzonatate 100 mg capsule 100 mg PO TID PRN Cough 11/10/24 11/10/24 History fluticasone 250 mcg-salmeterol 50 2 inh inhalation DAILY 11/10/24 11/10/24 History mcg/dose blistr powdr for inhalation megestrol 400 mg/10 mL (40 mg/mL) 800 mg PO DAILY 11/10/24 11/10/24 History oral suspension Patient History Surgical History H/O coronary artery bypass surgery Family History Other No pertinent family history Social History Smoking Status: Former smoker Tobacco Type: Cigarettes Cigarettes Per Day: A pack a day.; Second Hand Exposure: No; Do You Dip or Chew Tobacco: No; Tobacco Cessation Education Requested by Patient: No Hx Alcohol Use: No Hx Substance Use: No Preferred Language: Mandarin Citizen Of [place] Communication Ability: Impaired Communication Tools: Other Sea Shell Gatherer Required: Yes Beliefs That Will Affect Care: Episcopalian Episcopalian Beliefs: [place] Citizen [place] Bledso[place] Zoroastrian Current Living Situation: Spouse Current Living Situation Comment: Lives in [facility]. Other Information That Helps Us Care for You: No Feels Safe at Home: Yes Safety Concerns: Feels Safe At This Time Assistive Devices: Cane, Denture - Upper, Denture - Lower and Glasses Review of Systems Review of Systems: Unobtainable due to cognitive status Physical Exam Constitutional: + ill appearing, + cachectic and + frail appearing Eyes: PEARLA, +icteric sclera ENMT: external ear and nose normal, oropharynx normal Neck: trachea midline, no thyromegaly Respiratory: normal respiratory effort, lungs clear to auscultation Cardiovascular: RRR, no murmur, no edema Gastrointestinal (Abdomen): Inspection/Auscultation: normal bowel sounds Percussion/Palpation: + abdomen tender and abdomen soft Musculoskeletal: Extremities: strength 5/5 throughout FERNANDO Skin: + turgor decreased and + jaundice Neurologic: drowsy, does follow simple commands] Mandarin speaking, requires occupational therapist assistants Results & Data Vital Signs (Past 12 Hours) Vital Signs Temp Pulse Pulse Resp BP BP Pulse Ox 11/10/24 23:45 11/10/24 23:45 11/10/24 23:45 36.4 C L 74 14 89/56 L 93 11/10/24 23:34 36.8 C 78 18 110/69 93 11/10/24 23:06 20 97/64 L 92 11/10/24 22:42 69 23 104/73 93 11/10/24 22:30 68 18 104/73 93 11/10/24 22:00 70 20 85/66 L 93 11/10/24 21:36 73 20 99/69 L 92 11/10/24 21:12 74 23 108/66 93 11/10/24 20:48 72 17 115/64 93 O2 Del Method O2 Flow Rate 11/10/24 23:45 Nasal Cannula 2 11/10/24 23:45 Nasal Cannula 2 11/10/24 23:45 Nasal Cannula 2 11/10/24 23:34 Nasal Cannula 2 11/10/24 23:06 Nasal Cannula 2 11/10/24 22:42 2 11/10/24 22:30 Nasal Cannula 2 11/10/24 22:00 Nasal Cannula 2 11/10/24 21:36 Nasal Cannula 2 11/10/24 21:12 Nasal Cannula 2 11/10/24 20:48 Nasal Cannula 2 Laboratory Results No further labs or diagnostics in concert with comfort directed care. Diagnostic Findings No further labs or diagnostics in concert with comfort directed care. Medications Administered Current Inpatient Medications Atropine Sulfate (Atropine Sulfate 1% Op Soln 5 Ml Btl) 4 drops SL Q1H PRN PRN Reason: Secretions or pulm congestion Stop: 12/11/24 00:01 Glycopyrrolate (Glycopyrrolate 0.2 Mg/Ml Vial) 0.4 mg IV Q4H PRN PRN Reason: Rattling Secretions or Pulm Congestion Stop: 12/11/24 00:01 Hyoscyamine (Hyoscyamine Sulfate 0.125 Mg Tab) 0.125 mg SL Q4H PRN PRN Reason: Secretions or Pulm Congestion Stop: 12/11/24 00:01 Lorazepam (Lorazepam 2 Mg/1 Ml Vial) 0.5 mg IV Q4H PRN PRN Reason: Anxiety/Agitation Stop: 12/11/24 00:01 Melatonin (Melatonin 3 Mg Tab) 3 mg PO HS PRN PRN Reason: Insomnia Stop: 12/11/24 00:01 Morphine Sulfate (Morphine Sulfate 10 Mg/0.5 Ml Udp) 5 mg PO Q3H PRN PRN Reason: Pain or Respiratory Distress Stop: 11/25/24 00:01 Morphine Sulfate (Morphine Sulfate 2 Mg/Ml Carp) 2 mg IV Q4H PRN PRN Reason: Pain or Respiratory Distress Stop: 11/25/24 00:01 Ondansetron HCl (Ondansetron Inj 2 Mg/Ml 2 Ml Vial) 4 mg IV Q4H PRN PRN Reason: Nausea &/or Vomiting Stop: 12/11/24 00:01 Last Admin: 11/11/24 09:22 Dose: 4 mg Tamsulosin HCl (Tamsulosin Hcl 0.4 Mg Cap) 0.4 mg PO DAILY MONSTER Stop: 12/11/24 08:59 Last Admin: 11/11/24 09:18 Dose: Not Given PG Care Time/CCT Total # of Minutes Spent Total Time Spent with Patient: Total time spent is greater than 50% in coordination of care (as documented) at patient's floor/unit and/or counseling patient: [place] [address] IN/OBS CONSULT LVL 3,45M Patient Type New History Problem Focused Exam Problem Focused Medical Decision Making Low Complexity Diagnoses Palliative care by specialist Z51.5 Comfort measures only status Z51.5 Need for comfort care
[2024-11-11] MEDS: TAMSULOSIN HCL 0.4 MG CAP PO SCH (09:18)
[2024-11-11] MEDS: ONDANSETRON INJ 2 MG/ML 2 ML VIAL IV PRN (09:22)
[2024-11-11] MEDS: ATROPINE SULFATE 1% OP SOLN 5 ML BTL SL PRN (10:24)
[2024-11-11] MEDS: MoRPHine SULFATE 2 MG/ML CARP IV PRN (11:49)
--- NOTE | 2024-11-11 12:20 | Hospitalist Progress Note ---
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 No cell type diagnosis has been made at this time. Patient no longer eating or drinking much at all. Comfort measures only. Appreciate palliative care consultation and recommendations. (2) Admission for end of life care: Plan: Comfort measures only. Appreciate palliative care assistance (3) Metastasis to liver: Plan: Known. 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 No intervention at this time Plan Comfort measures only. DNR/DNI Admission and Anticipated Discharge Date Admission Date: November 10, 2024 Subjective The patient is sleeping but responsive. Daughter is at the bedside and she does all of the talking because she speaks Persian. The patient does not speak any Persian at all. 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 Comfort measures only at this time. Appreciate palliative care consultation and recommendations Review of Systems 2 Review of Systems: The patient is unable to answer any questions regarding review of systems at this time Physical Exam 2 Physical Exam: General-sleeping but arousable. He does not speak Persian. No fever HEENT-head atraumatic and normocephalic, pupils equal and reactive to light, extraocular muscles intact Neck-no lymphadenopathy or thyromegaly, trachea midline Chest-scattered bilateral rhonchi. No rales, no wheezing Cardiac -regular rate and rhythm, normal S1 and S2 Abdomen-normal bowel sounds, no hepatosplenomegaly Extremities-no cyanosis, clubbing, or edema Neuro-cranial nerves II through XII intact, motor and sensory function within normal limits, strength symmetrical with generalized weakness, no focal deficits Psych-cannot assess Results & Data Results & Data Vital Signs (Past 12 Hours) Vital Signs O2 Del Method 11/11/24 09:32 Room Air Laboratory Results 11/10/24 18:00 11/10/24 18:00 PG Care Time/CCT Total # of Minutes Spent Total Time Spent with Patient: Total time spent is greater than 50% in coordination of care (as documented) at patient's floor/unit and/or counseling patient: Coding Level of Care Code 72677 SUB INP/OBS CARE 3/50MIN Diagnoses Metastatic cancer C79.9 Admission for end of life care Z51.5 Metastasis to liver C78.7 Metastasis to brain C79.31
--- NOTE | 2024-11-11 21:21 | Electrocardiogram Report ---
Test Reason : Blood Pressure : */* mmHG Vent. Rate : 70 BPM Atrial Rate : 70 BPM P-R Int : 154 ms QRS Dur : 114 ms QT Int : 424 ms P-R-T Axes : 55 80 25 degrees QTcB Int : 457 ms Normal sinus rhythm Low voltage QRS Right bundle branch block Abnormal ECG When compared with ECG of 29-Dec-2023 14:08, Nonspecific T wave abnormality, worse in Inferior leads T wave inversion more evident in Anterior leads Confirmed by Malcolm Farooq ([id number]) on 11/11/2024 9:20:58 PM Referred By: Confirmed By: Malcolm Farooq
[2024-11-11] MEDS: MELATONIN 3 MG TAB PO SCH (21:51)
[2024-11-12] MEDS: diphenhydrAMINE 50 MG/ML VIAL IV SCH (15:53)
--- NOTE | 2024-11-12 16:13 | Hospitalist Progress Note ---
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 - likely all due to extensive liver mets he was made comfort care measures only at time of admission - continue such (3) Metastasis to liver: Plan: as above (4) Metastasis to brain: Plan: as above (5) Jaundice: Plan: 2nd to biliary obstruction from cancer - see above adding IV benadryl for control of itching (6) H/O coronary artery bypass surgery: (7) JOY (acute kidney injury): Plan: Cr 2.5 at admission with baseline Cr ~1 now anuric Plan anticipate pt's passing within the next few days Admission and Anticipated Discharge Date Admission Date: November 10, 2024 Subjective patient was lethargic during the visit his daughter tried to wake him up using their marshall language (Nauruan) but he only opened his eyes briefly and promptly went to sleep he was scratching his skin in multiple locations no urine output via weeks following my assessment I brought his daughter to another room and used the [facility] to give her a status update about 1/2 way through this meeting the pt's other daughter arrived I explained that between his liver failure and kidney failure that we are likely looking at just days to live as opposed to weeks did explain the itching is from the jaundice and that I would order meds for such (benadryl) Review of Systems Review of Systems: Unobtainable due to cognitive status and Unobtainable due to reduced consciousness Physical Exam Physical Exam: gen - thin, lying in bed, lethargic, scratching at his skin skin - jaundice to the groin heart - RRR, s1 s2 lungs - CTA b/l abd - liver edge palpable, but nontender, ND, soft ext - warm feet, pulses 2+ b/l psych - oriented x 0; lethargic Results & Data Results & Data Vital Signs (Past 12 Hours) Vital Signs O2 Del Method 11/12/24 05:00 Room Air PG Care Time/CCT Total # of Minutes Spent Total Time Spent with Patient: Total time spent is greater than 50% in coordination of care (as documented) at patient's floor/unit and/or counseling patient: Coding Level of Care Code 73401 SUB INP/OBS CARE 2/35MIN Diagnoses Admission for end of life care Z51.5 Metastatic cancer C79.9 Metastasis to liver C78.7 Metastasis to brain C79.31 Jaundice R17 H/O coronary artery bypass surgery Z95.1 JOY (acute kidney injury) N17.9
[2024-11-12] MEDS: GLYCOPYRROLATE 0.2 MG/ML VIAL IV PRN (18:13)
[2024-11-12] MEDS: MoRPHine SULFATE 2 MG/ML CARP IV PRN (19:43)
--- NOTE | 2024-11-13 08:33 | Discharge Summary ---
Discharge Summary Date of Service Admission Date November 10, 2024 Date and Time of Date of : 11/13/24 Time of : 07:05 Principal Dx & Hospital Course #1 = Principal Diagnosis (1) Admission for end of life care: Mr Geller was diagnosed with lung cancer on 09/20/2024 with known mets to the liver and brain. He presented to the hospital with failure to thrive, anorexia, decreased mentation. He underwent extensive imaging in the ER including CT head, chest, abdomen, and pelvis. CT head showed ongoing brain mets with surrounding vasogenic edema. Chest CT showed multiple pulmonary mets, presumed SIVA lung cancer primary, and metastases to the mediastinal lymph nodes. CT abd/pelvis showed extensive liver mets, probable adrenal metastases, and lymph node metastases. Liver function tests were markedly elevated including total bili and direct bili. He was severely jaundiced on physical exam. It appeared he was in acute hepatic failure. He was also in acute renal failure with creatinine of 2.49 (baseline creatinine 1). After discussing his prognosis with his family he was subsequently admitted to the hospital for end of life care/comfort care measures. He remained somnolent from that point forward and became anuric. On 11/13/24 at 0705 he passed peacefully in the presence of his daughters. (2) Comfort measures only status: (3) Acute hepatic failure: (4) JOY (acute kidney injury): (5) Metastatic primary lung cancer: (6) Metastasis to brain: as above (7) Metastasis to liver: as above (8) CAD (coronary artery disease): (9) H/O coronary artery bypass surgery: Admission HPI Per Admitting Provider 84 y/o presents with failure to thrive. Patient diagnosed with lung cancer 09/20/2024 with mets to the liver and brain. Has not started treatment. Plan was to review Brain MRI and PET with Dr. Chambers next week and decide on next steps. Over the last few days he has become acutely weaker. Patient is barely eating or drinking. Family concerned that he may be in the active stage of dying. Daughters are at bedside and translate for the patient as he is mandarin speaking. Reportedly patient has noticed blurry vision and is uncomfortable. In the ED: Patient given 2L IVF, morphine, and Zosyn. Imaging performed as well. Hospitalist service consulted for admission. Discharge Exam at time of - pupils fixed/dilated; no response to pain or voice; no audible heart tones; no spontaneous respiratory effort; jaundiced from head to toe Discharge Plan Discharge Items Patient Disposition: Other Date/Time: 11/13/24 07:05 Hospital Stay Data Consultations 11/11/24 00:02 Consult Palliative Care Diagnostic Imagining Performed 11/10/24 18:02 CT head/brain wo con Stat 11/10/24 18:09 CT abd pelvis wo con Stat CT chest diagnostic wo con Stat Total Time Total Time Spent Total Time Spent (In Minutes): 25 Coding Level of Care Code 51031 IN/OBS DISCH 30 MIN/LESS Diagnoses Admission for end of life care Z51.5 Comfort measures only status Z51.5 Acute hepatic failure K72.00 JOY (acute kidney injury) N17.9 Metastatic primary lung cancer C34.90 Metastasis to brain C79.31 Metastasis to liver C78.7 CAD (coronary artery disease) I25.10 H/O coronary artery bypass surgery Z95.1
--- NOTE | 2024-11-13 08:33 | Death Pronouncement Note ---
Date of Service November 13, 2024 Pronouncement Note Admission Date November 10, 2024 Date and Time of Date of : 11/13/24 Time of : 07:05 Preliminary Cause of (1) Biliary obstruction due to cancer: (2) Metastatic primary lung cancer: (3) Metastasis to brain: (4) Metastasis to liver: Additional Data Confirmation of : no pulse, no respirations, no heart sounds and pupils fixed and dilated Pronouncement Performed By: Attending Physician Family: at bedside Attending/PCP notified?: Yes Attending physician: Lucho Hernandez MD Was code activated?: No Autopsy requested?: No crime scene examiner notified?: No Coding Level of Care Code None Diagnoses Biliary obstruction due to cancer K83.1; C80.1 Metastatic primary lung cancer C34.90 Metastasis to brain C79.31 Metastasis to liver C78.7
== END 2024-11-13 11:15 | disposition expired | DRG 180 ==
LOC: ED 17:39 → SUATTDRO 21:19 → 3E 21:19
DX: Z87.891 Personal history of nicotine dependence; R33.9 Retention of urine, unspecified; Z66 Do not resuscitate; C34.90 Malignant neoplasm of unspecified part of unspecified bronchus or lung; Z79.899 Other long term (current) drug therapy; Z95.1 Presence of aortocoronary bypass graft; N17.9 Acute kidney failure, unspecified; C79.31 Secondary malignant neoplasm of brain; K83.1 Obstruction of bile duct; Z51.5 Encounter for palliative care; C78.7 Secondary malignant neoplasm of liver and intrahepatic bile duct